=== PATIENT | female | born 1995 | race Caucasian/White ===

== ENCOUNTER 2023-11-03 09:19 | Emergency (ER) | payer BC, SELFPAY ==
[2023-11-03 09:33] VITALS: BP 123/65; PULSE 83; RESP 16; TEMP 36.6; O2SAT 100
--- NOTE | 2023-11-03 09:35 | WPDEDEXPGENP ---
HPI - General Ped General Chief complaint: Urogenital-Female Stated complaint: UTI Time Seen by Provider: 11/03/23 09:35 Source: patient Mode of arrival: ambulatory Limitations: no limitations Nursing Documentation: reviewed/agree History of Present Illness HPI narrative: 27-year-old female patient presents to the [facility] with complaints of urinary symptoms for the past 2 weeks. Patient states she has had burning with urination, urgency and frequency. Denies fevers, body aches or chills. Denies any abdominal pain, nausea, vomiting or diarrhea. Denies any low back pain. Patient states she has been taking Pyridium and some natural supplements from her holistic nurse practitioner that was given to her since this past Sunday. Patient states her last menstrual cycle was about 2 weeks ago. Denies but states not on any types of control at this time. Related Data Home Medications Medication Instructions Recorded Confirmed thyroid (pork) 30 mg tablet 30 mg PO DAILY 11/03/23 11/03/23 ([place] [facility]) Allergies Allergy/AdvReac Type Severity Reaction Status Date / Time Penicillins Allergy Intermediate hives Verified 11/03/23 09:31 Pediatric Review of Systems Review of Systems: CONSTITUTIONAL: Denies fever, chills, or sweats. EYES: Denies visual changes, redness, or discharge. ENT: Denies rhinorrhea, congestion, sore throat, or otalgia. CARDIOVASCULAR: Denies chest pain, palpitations, or edema. RESPIRATORY: Denies cough or dyspnea. GASTROINTESTINAL: Denies abdominal pain, nausea, vomiting, or diarrhea. GENITOURINARY: Positive dysuria or hematuria. SKIN: Denies rash or itching. MUSCULOSKELETAL: Denies back pain, joint pain, or myalgia. NEUROLOGIC: Denies headache, numbness, or weakness. PSYCHIATRIC: Denies anxiety or depression. PMFSH Comments At the time of my signature I agree with nursing past medical history, surgical, social, and family history. There is no relevant family history pertinent to the presenting complaint. Pediatric Exam Narrative: Physical exam: GENERAL: Well-appearing, well-nourished, and in no acute distress. HEAD: Normocephalic, atraumatic. EYES: PERRLA and EOMI. ENT: Nares clear, no rhinorrhea or epistaxis. Mucous membranes moist. NECK: Supple. No lymphadenopathy CHEST: Clear to auscultation. No respiratory distress. HEART: Regular rate and rhythm. No murmur heard. Normal peripheral pulses. ABDOMEN: Soft, nontender, nondistended, normal active bowel sounds. No CVA tenderness on percussion. Positive lower suprapubic pain on palpation EXTREMITIES: Normal range of motion. No edema. SKIN: Warm, dry, no rash. NEURO: No focal deficits. Alert and oriented x3. Course Course Level of Care: Express Care Visit Vital Signs Vital signs: Vital Signs Temperature 36.6 C 11/03/23 09:33 Pulse Rate 83 11/03/23 09:33 Respiratory Rate 16 11/03/23 09:33 Blood Pressure 123/65 11/03/23 09:33 Pulse Oximetry 100 11/03/23 09:33 Oxygen Delivery Room Air 11/03/23 09:33 Temperature 36.6 C 11/03/23 09:33 Pulse Rate 83 11/03/23 09:33 Respiratory Rate 16 11/03/23 09:33 Blood Pressure 123/65 11/03/23 09:33 Pulse Oximetry 100 11/03/23 09:33 Oxygen Delivery Room Air 11/03/23 09:33 Vital signs reviewed. Medical Decision Making MDM Narrative Medical decision making narrative: Plan care for patient is discharge home with oral antibiotics for urinary tract infection. We will send the urine off to the lab for culture. Discussed with patient she can continue taking the Pyridium as needed for pain. Make sure that she is drinking plenty of fluids flush out her kidneys. Patient verbalized understanding denies any other questions or concerns at this time. Differential Diagnosis Differential Diagnosis: Differential diagnosis: Uncomplicated lower UTI, uncomplicated UTI, pyelonephritis Vital Signs Vital Signs: Vital Signs Temperature 3
== END 2023-11-03 10:00 | disposition home or self-care (01) ==
PROVIDERS: Emergency Provider Nurse Practitioner Family; PCP Nurse Practitioner
DX: N30.01 Acute cystitis with hematuria (principal); E03.9 Hypothyroidism, unspecified
CPT/HCPCS: 81003; 81025; 87086; 99213; G0463